=== PATIENT | male | born 1950 | race Caucasian/White ===

== ENCOUNTER 2016-06-27 05:03 | Observation (INO) | payer OTHER, BC ==
[~2016-06-27] VITALS: Ht 182.9 cm; Wt 94.0 kg
[~2016-06-27 05:03] MED LIST: ACETAMINOPHN-T1 EACH PO; ADVAIR 100/501 DISK IH; ALTACE2.5 MG PO; ASPIR-MOX IB C325 MG PO; ASPIRIN325 MG PO; COUMADIN2 MG PO; COUMADIN4 MG PO; DELTASONE20 M1 PO; DULERA 200 MCG/13 GM IH; LEVAQUIN500 MG PO; LEVOTHROID125 MCG PO; LIPITOR80 MG PO; METAXALONE800 MG PO; METOPROLOL SUCC25 MG PO; NITROGLYCERIN0.4 MG PO; PERCOCET 5/31 TABLET PO; PLAVIX75 MG PO; PRILOSEC OTC20 MG PO; PRILOSEC10 MG PO; PRILOSEC20 MG PO; PROAIR HFA8.5 GM IH; PROAIR RESPICL90 MCG IH; SKELAXIN800 MG PO; ULTRACET1 TABLET PO; WARFARIN SODIUM4 MG PO; ZETIA10 MG PO; ZOFRAN4 MG PO
[2016-06-27] MEDS ORDERED: ECOTRIN325 MG PO (05:46)
[2016-06-27] MEDS ORDERED: METAXALONE800 MG PO (05:49)
[2016-06-27 05:59] LABS: HEMATOCRIT 43.7 % (38.0-50.0); MCH 32.2 PG (29.0-34.0); MCHC 33.9 G/DL (30.0-36.0); MCV 95.2 FL (86-99); MEAN PLAT.VOLUME 10.4 uM^3 (9.0-12.4); PLATELET COUNT 258 K/uL (156-360); RBC DIS.WIDTH-CV 14.6 % (11.8-14.6); RBC DIS.WIDTH-SD 51.3 % (39-53); RED BLOOD COUNT 4.59 M/uL (4.00-5.50); WHITE BLOOD COUNT 12.8 K/uL (4.1-10.2)
[2016-06-27 06:20] LABS: CHLORIDE 104 mEq/L (99-109); POTASSIUM 4.1 mEq/L (3.7-5.4); SODIUM 138 mEq/L (136-147)
[2016-06-27 06:22] LABS: GLUCOSE 116 mg/dL (70-99)
[2016-06-27 06:23] LABS: ANION GAP 11 MEQ/L (2-14)
[2016-06-27 06:24] LABS: TOTAL BILIRUBIN 0.8 mg/dL (0.0-1.0)
[2016-06-27 06:25] LABS: ALKALINE PHOSPHATASE 75 IU/L (3-129)
[2016-06-27 06:26] LABS: GFR ESTIMATE (CALCULATED) 59 mL/min/
[2016-06-27 06:27] LABS: DIRECT BILIRUBIN 0.6 mg/dL (0.0-0.3); UREA NITROGEN (BUN) 20 mg/dL (9-23)
[2016-06-27 06:29] LABS: LIPASE 28 U/L (1.0-51.0); TROP-I INTERPRETATION NEGATIVE; TROPONIN-I < 0.01 ng/mL (0.0-0.30)
[2016-06-27 07:44] LABS: D-DIMER ELISA 0.26 mg/L FEU (< 0.57)
[2016-06-27] MEDS ORDERED: LEVO-T125 MCG PO (08:30)
[2016-06-27] MEDS ORDERED: ALBUTEROL2.5 MG/3 M IH (08:30)
[2016-06-27] MEDS ORDERED: DUONEB 2.5-0.5 M3 ML AEROSOL (08:31)
[2016-06-27 09:10] LABS: ADD MIUA? NO; BILIRUBIN NEGATIVE; BLOOD NEGATIVE; COLOR YELLOW ((YELLOW)); GLUCOSE (STRIP) NEGATIVE; KETONES NEGATIVE; LEUKOCYTES NEGATIVE; NITRITE NEGATIVE; PROTEIN (STRIP) NEGATIVE; SPECIFIC GRAVITY 1.019 (1.000-1.030); UCUL ADDED? NO; UROBILINOGEN 0.2 MG/DL (0.2-1.0)
[2016-06-27 09:22] VITALS: BP 112/68
[2016-06-27 10:19] LABS: INTER. NORMALIZED RATIO 2.7
[2016-06-27 10:24] LABS: PROTHROMBIN TIME 28.2 (9.2-11.2)
[2016-06-27 11:32] VITALS: BP 110/68
[2016-06-27 14:54] LABS: TROP-I INTERPRETATION NEGATIVE; TROPONIN-I < 0.01 ng/mL (0.0-0.30)
[2016-06-27 18:40] LABS: TROP-I INTERPRETATION NEGATIVE; TROPONIN-I < 0.01 ng/mL (0.0-0.30)
[2016-06-27 20:00] VITALS: BP 142/76
[2016-06-27 20:58] LABS: ANION GAP 10 MEQ/L (2-14); CHLORIDE 106 MEQ/L (99-109); MAGNESIUM 1.6 mg/dl (1.3-2.7); POTASSIUM 3.9 MEQ/L (3.7-5.4); SAMPLE HEMOLYSIS CHECK 0; SAMPLE ICTERIC CHECK 0; SAMPLE LIPEMIA CHECK 0; SODIUM 137 MEQ/L (136-147)
[2016-06-27 21:03] LABS: GFR ESTIMATE (CALCULATED) > 59 mL/min/; GLUCOSE 107 mg/dL (70-99); UREA NITROGEN (BUN) 19 mg/dL (9-23)
[2016-06-27 23:40] VITALS: BP 128/66
[2016-06-28 03:52] VITALS: BP 112/64
[2016-06-28 05:04] LABS: BASOPHIL COUNT 0.1 K/uL (0-0.1); EOSINOPHIL COUNT 0.3 K/uL (0-0.3); HEMATOCRIT 40.2 % (38.0-50.0); IMMATURE GRANULOCYTE (%) 0.2 % (0.0-0.7); INSTRUMENT ABS NEUTROPHIL CT 7.6 K/uL; LYMPHOCYTE COUNT 1.1 K/uL (1.0-2.8); MCH 31.8 PG (29.0-34.0); MCHC 33.6 G/DL (30.0-36.0); MCV 94.8 FL (86-99); MEAN PLAT.VOLUME 11.2 uM^3 (9.0-12.4); MONOCYTE (%) 11.8 % (3-12); MONOCYTE COUNT 1.2 K/uL (0-0.8); NEUTROPHIL (%) 73.8 % (45-76); NEUTROPHIL COUNT 7.6 K/uL (1.8-6.4); PLATELET COUNT 227 K/uL (156-360); RBC DIS.WIDTH-CV 14.7 % (11.8-14.6); RBC DIS.WIDTH-SD 51.7 % (39-53); RED BLOOD COUNT 4.24 M/uL (4.00-5.50); WHITE BLOOD COUNT 10.3 K/uL (4.1-10.2)
[2016-06-28 05:18] LABS: INTER. NORMALIZED RATIO 2.3; PROTHROMBIN TIME 24.3 (9.2-11.2)
[2016-06-28 06:48] LABS: ADD MIUA? YES; BILIRUBIN NEGATIVE; BLOOD SMALL; COLOR YELLOW ((YELLOW)); GLUCOSE (STRIP) NEGATIVE; KETONES NEGATIVE; LEUKOCYTES NEGATIVE; NITRITE NEGATIVE; PROTEIN (STRIP) NEGATIVE; SPECIFIC GRAVITY 1.012 (1.000-1.030); UROBILINOGEN 0.2 MG/DL (0.2-1.0)
[2016-06-28 07:09] LABS: BACTERIA RARE /HPF; EPITHELIAL CELLS RARE /HPF; MUCUS TRACE /LPF; UCUL ADDED? NO; WHITE BLOOD CELLS NONE SEEN /HPF (0-5)
[2016-06-28 07:40] VITALS: BP 114/78
[2016-06-28 07:42] VITALS: BP 122/82
[2016-06-28 08:46] LABS: ANION GAP 8 MEQ/L (2-14); CHLORIDE 104 MEQ/L (99-109); GFR ESTIMATE (CALCULATED) > 59 mL/min/; GLUCOSE 100 mg/dL (70-99); POTASSIUM 4.3 MEQ/L (3.7-5.4); SAMPLE HEMOLYSIS CHECK 0; SAMPLE ICTERIC CHECK 0; SAMPLE LIPEMIA CHECK 0; SODIUM 136 MEQ/L (136-147); UREA NITROGEN (BUN) 18 mg/dL (9-23)
[2016-06-28 08:51] LABS: MAGNESIUM 2.7 mg/dl (1.3-2.7)
[2016-06-28] MEDS ORDERED: LOPRESSOR25 MG PO (10:11)
[2016-06-28 10:40] LABS: HDL CHOLESTEROL 33 MG/DL (Desirable>=40); LDL CHOLESTEROL 58 mg/dL (Desirable<100); NON-HDL CHOLESTEROL 75 mg/dL (Desirable<160); TOTAL CHOLESTEROL 108 mg/dL (Desirable<200); TRIGLYCERIDES 87 MG/DL (Normal: <150)
[2016-06-28] MEDS ORDERED: LEVAQUIN750 MG PO (11:16)
== END 2016-06-28 12:23 | disposition home or self-care (01) ==
LOC: EME 05:03 → EDOF 08:03 → 5WEST 08:03 → EDOF 08:03 → 5WEST 09:14
PROVIDERS: Emergency Medicine; Hospitalist; Nurse Practitioner Adult Health; Physician Assistant Medical
DX: R55 Syncope and collapse (principal); R51 Headache; I25.10 Atherosclerotic heart disease of native coronary artery without angina pectoris; I49.3 Ventricular premature depolarization; D68.61 Antiphospholipid syndrome; R00.8 Other abnormalities of heart beat; R94.31 Abnormal electrocardiogram [ECG] [EKG]; R50.9 Fever, unspecified; D72.829 Elevated white blood cell count, unspecified; E03.9 Hypothyroidism, unspecified; J44.9 Chronic obstructive pulmonary disease, unspecified; E78.5 Hyperlipidemia, unspecified; J45.909 Unspecified asthma, uncomplicated; Z86.73 Personal history of transient ischemic attack (TIA), and cerebral infarction without residual deficits; Z95.5 Presence of coronary angioplasty implant and graft; Z95.1 Presence of aortocoronary bypass graft; Z79.01 Long term (current) use of anticoagulants
CPT/HCPCS: 70450; 70551; 71020; 80048; 80048 91; 80061; 80076; 81003; 83690; 83735; 84443; 84484; 85025; 85027; 85379; 85610; 93005; 93306; 93880; 99281; 99285; G0378; J3475; J7030

== ENCOUNTER 2017-02-02 14:17 | Emergency (ER) | payer OTHER, BC ==
[~2017-02-02] VITALS: Ht 182.9 cm; Wt 93.2 kg
[~2017-02-02 14:17] MED LIST changes: +ALBUTEROL2.5 MG/3 M IH; +DUONEB 2.5-0.5 M3 ML AEROSOL; +ECOTRIN325 MG PO; +LEVAQUIN750 MG PO; +LEVO-T125 MCG PO; +LOPRESSOR25 MG PO
[2017-02-02 19:15] VITALS: BP 145/89
== END 2017-02-02 19:16 | disposition home or self-care (01) ==
LOC: EME 14:17
DX: S61.216A Laceration without foreign body of right little finger without damage to nail, initial encounter (principal); W31.2XXA Contact with powered woodworking and forming machines, initial encounter; Z23 Encounter for immunization; I10 Essential (primary) hypertension; E78.5 Hyperlipidemia, unspecified; E03.9 Hypothyroidism, unspecified; K21.9 Gastro-esophageal reflux disease without esophagitis
CPT/HCPCS: 73130; 99281; 99284; J2270